=== PATIENT | male | born 1970 | race Caucasian/White ===

== ENCOUNTER 2022-01-17 19:38 | Inpatient (IN) ==
--- NOTE | 2022-01-17 20:46 | XRay Report ---
XR ankle LT min 3V routine CLINICAL HISTORY: left ankle injury COMPARISON: None FINDINGS: Note is made of an acute oblique mildly displaced fracture of the diaphysis of the left tib ia at the junction of the middle and distal thirds. Fracture is displaced 7 mm. A nondisplaced compon ent extends through the distal left tibia. There is an acute oblique comminuted mildly displaced dist al diaphyseal fracture of the left fibula as well. No ankle mortise widening is noted. Lateral ankle soft tissue swelling is present. Talar dome is intact. IMPRESSION: Oblique displaced comminuted left tibial and fibular fractures, as described above. ACT 112: Negative or not required by law. Electronically signed by: Hayder August M.D. 01/17/2022 8:45 PM
--- NOTE | 2022-01-17 20:46 | XRay Report ---
XR tibia fibula LT 2V CLINICAL HISTORY: left lower leg injury COMPARISON: None FINDINGS: No acute proximal left tibial or fibular fracture is present. Note is made of an acute obl ique mildly displaced fracture through the diaphysis of the left tibia at the junction of the middle and distal thirds. Fracture is displaced 7 mm. Nondisplaced component extends to the distal left tibi a. There is also an acute oblique displaced fracture the distal diaphysis of the left fibula. Fractur e is displaced 6 minutes. IMPRESSION: Acute oblique mildly displaced left tibial and fibular fractures, as described above. ACT 112: Negative or not required by law. Electronically signed by: Hayder August M.D. 01/17/2022 8:44 PM
[2022-01-17] MEDS ORDERED: IBUPROFEN 600 MG TAB PO STA (20:53)
--- NOTE | 2022-01-17 22:24 | History & Physical Report ---
Date of Service January 17, 2022 Assessment & Plan (1) Closed fracture of shaft of left tibia: (2) Closed fracture of left distal fibula: (3) Fracture of posterior malleolus of left tibia: The injury has resulted in unstable fractures of the tibial shaft and potentially the distal fibula and posterior malleolus. Recommend admission pain control and surgical management as soon as medically optimized. Plan for left tibial nail and possible ORIF of the lateral malleolus, based on intraoperative evaluation of the syndesmosis. Appreciate internal medicine consult for newfound atrial fibrillation. Patient denied any previous medical history. Should be surgically stabilized as soon as today. Maintain n.p.o. until we know about surgical clearance. On-call to the OR this afternoon. I discussed the operative plan with the patient this morning. Discussed the risks include but not limited to infection, neurovascular injury, arthrofibrosis of the knee or ankle, anterior knee pain related tibial nails, malunion, nonunion, limb deformities including leg length discrepancy, symptomatic hardware requiring secondary surgery, blood loss, pain syndromes, blood clots, and complications related anesthesia. He has appropriate questions, demonstrate good understanding when to proceed with surgery. Alternatives are tibial shaft fractures are limited to cast treatment which have an increased risk profile for healing as well as medical complications. History of Present Illness Chief Complaint: Left tibia and distal fibula fracture Primary Care Provider: TENZIN PCP 51-year-old otherwise healthy and active male twisted his ankle and impacted his leg today resulting in immediate pain and deformity. He was fishing down the bank. He was able to crawl on his hands and knees up to the road where he could find help. He was brought to the emergency room where radiographs revealed a tibial shaft fracture and ipsilateral left distal fibula fracture. Orthopedics was consulted for definitive management. He appeared to have an isolated injury to his tibia and ankle. He was admitted for preoperative management and surgical stabilization the next morning. Upon admission EKG identified atrial fibrillation. Internal medicine was consulted for preoperative work-up. He reported tolerable pain in the splint. He denied any previous injuries to his tibia. He denied any known medical problems or medications. 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 Allergies Allergy/AdvReac Type Severity Reaction Status Date / Time No Known Allergies Allergy Verified 01/17/22 20:15 Home Medications Medication Instructions Recorded Confirmed Type No Known Home Medications 01/17/22 01/17/22 History Past Med/Surg History Medical History Alcohol abuse Crohn's disease Murmur Tobacco abuse Social History Smoking Status: Never smoker Tobacco Type: Smokeless Tobacco (Dip or Chew) Second Hand Exposure: No; Do You Dip or Chew Tobacco: Yes (1/2 can per day); Tobacco Cessation Education Requested by Patient: No Hx Alcohol Use: Yes Alcohol type: beer Alcohol type Comment: 4-5 beers daily, last 2 beers 4/6 Hx Substance Use: No Preferred Language: Sami Communication Ability: Effective Teacher Emotionally Impaired Required: No Beliefs That Will Affect Care: None Current Living Situation: Family Other Information That Helps Us Care for You: No Feels Safe at Home: Yes Safety Concerns: Feels Safe At This Time Assistive Devices: None Review of Systems All systems reviewed & are unremarkable except as noted in HPI & below. Physical Exam Left lower extremity: No report of wounds from the emergency room nor the patient. He was placed in a short leg ankle splint by the ED. Appear to be adequate padding. He was neurovascular intact including motor to his digits. Constitutional well developed and well nourished; no acute distress and not intoxicated appearing ENMT external ear and nose normal, oropharynx normal Respiratory normal respiratory effort; no respiratory distress Cardiovascular Extremities: normal capillary refill; no edema Skin no rashes, warm and dry Psychiatric A+Ox3, euthymic affect Results & Data Results & Data Laboratory Results H & H 01/17/22 01/18/22 Range/Units 22:23 08:04 Hgb 13.9 L 14.3 (14.0-18.0) g/dL Hct 39.7 L 42.1 (42-52) % Coagulation 01/17/22 Range/Units 22:23 INR 1.0 (0.9-1.1) Diagnostic Findings Radiographs demonstrate a tibial shaft fracture with a short oblique pattern. It is displaced and requires surgical stabilization. Ankle films reveal a fracture of the distal fibula extends down into the metaphysis at the level of the syndesmosis and ankle joint. It is comminuted and long oblique in nature. CT scan was requested of the ankle to determine if the spiral fracture of the tibia traverses the plafond. The minimally displaced component does approach the plafond but does not appear to disrupt it. This may need to stabilize prior to nail passage. The posterior malleolus also has a nondisplaced fracture from the rotational ankle injury. PG Care Time/CCT Total # of Minutes Spent Total Time Spent with Patient: Total time spent is greater than 50% in coordination of care (as documented) at patient's floor/unit and/or counseling patient: Coding Level of Care Code 43130 Initial Inpt Care Lvl 3 (57 - DECISION FOR SURGERY) Diagnoses Closed fracture of shaft of left tibia S82.202A Closed fracture of left distal fibula S82.832A Fracture of posterior malleolus of left tibia S82.392A
[2022-01-18] MEDS ORDERED: ALUMINUM/MAGNESIUM SUSP 30 ML UDC PO PRN (00:08)
[2022-01-18] MEDS ORDERED: diphenhydrAMINE Capsule 25 MG CAP PO PRN (00:08)
[2022-01-18] MEDS ORDERED: HYDROmorphone INJ 0.5 MG/0.5 ML SYR IV PRN (00:08)
[2022-01-18] MEDS ORDERED: MAGNESIUM HYDROXIDE SUSP 30 ML UDC PO PRN (00:08)
[2022-01-18] MEDS ORDERED: ONDANSETRON INJ 2 MG/ML 2 ML VIAL IV PRN ×3 (00:08→17:02)
[2022-01-18 00:20] LABS: Basophils # (auto) 0.03 K/uL (0-0.2); Basophils % (auto) 0.4 %; Eosinophils # (auto) 0.01 K/uL (0-0.5); Eosinophils % (auto) 0.1 %; Hematocrit (blood only) 39.7 % (42-52); Hemoglobin 13.9 g/dL (14.0-18.0); Immature Granulocytes # (auto) 0.02 K/uL (0.00-0.02); Immature Granulocytes % (auto) 0.3 %; Lymphocytes # (auto) 0.79 K/uL (1.2-3.4); Lymphocytes % (auto) 9.9 %; Mean Corpuscular Volume 88.4 fL (80-100); Mean Platelet Volume 9.1 fL (7.4-10.4); Monocytes # (auto) 0.43 K/uL (0.11-0.59); Monocytes % (auto) 5.4 %; Neutrophils # (auto) 6.67 K/uL (1.4-6.5); Neutrophils % (auto) 83.9 %; Platelet Count 247 K/uL (130-400); RDW Coefficient of Variation 13.3 % (11.5-14.5); RDW Standard Deviation 43.1 fL (36.4-46.3); Red Blood Count 4.49 M/uL (4.7-6.1); White Blood Count 7.95 K/uL (4.8-10.8)
[2022-01-18 00:28] LABS: Prothrombin Time 10.9 Seconds (9.0-12.0)
[2022-01-18] MEDS: ACETAMINOPHEN 500 MG TAB PO SCH ×3 (00:37→16:00)
[2022-01-18] MEDS: HYDROmorphone INJ 0.5 MG/0.5 ML SYR IV PRN ×3 (00:38→16:11)
[2022-01-18 00:45] LABS: Anion Gap 9 (3-11); BUN Creatinine Ratio 8.1 (10-20); Blood Urea Nitrogen 7 mg/dl (6-23); Calcium 9.1 mg/dl (8.5-10.1); Carbon Dioxide 26 mmol/L (21-32); Chloride 100 mmol/L (98-107); Est GFR (African American) 115.6 ml/min; Est GFR (Non-African American) 99.7 ml/min; Glucose 97 mg/dl (70-99(Fasting)); Potassium 4.2 mmol/L (3.5-5.1); Sodium 135 mmol/L (136-145)
[2022-01-18] MEDS ORDERED: ceFAZolin 2000MG 2,000 MG/15 ML SYR IV SCH (06:00)
[2022-01-18] MEDS: DOCUSATE SODIUM 100 MG CAP PO SCH ×3 (07:46→22:59)
[2022-01-18] MEDS ORDERED: hydrALAZINE HCL 20 MG/ML VIAL IV PRN (07:52)
[2022-01-18 08:16] LABS: Hematocrit (blood only) 42.1 % (42-52); Hemoglobin 14.3 g/dL (14.0-18.0); Mean Corpuscular Hemoglobin 30.6 pg (25-34); Mean Corpuscular Volume 90.1 fL (80-100); Mean Platelet Volume 8.5 fL (7.4-10.4); Platelet Count 230 K/uL (130-400); RDW Coefficient of Variation 13.5 % (11.5-14.5); RDW Standard Deviation 44.4 fL (36.4-46.3); Red Blood Count 4.67 M/uL (4.7-6.1); White Blood Count 7.33 K/uL (4.8-10.8)
--- NOTE | 2022-01-18 08:35 | CT Scan Report ---
CT SCAN OF THE LEFT TIBIA AND FIBULA WITHOUT IV CONTRAST CLINICAL HISTORY: Tibial fracture. COMPARISON STUDY: Radiographs of the left tibia and fibula dated 01/17/2022. TECHNIQUE: CT scan of the left tibia and fibula is performed from the knee to the ankle. Images are r eviewed in the axial, sagittal, and coronal planes. IV contrast was not administered for this examina tion. 3-D reformats are created and assessed. A dose lowering technique was utilized adhering to the principles of ALARA. CT DOSE: 642.38 mGy.cm FINDINGS: The skeletal structures are well mineralized. Again seen is a comminuted spiral fracture of the mid to distal tibial shaft. There is lateral offset of the distal fragment by 5 mm and dorsal di splacement of the distal fragments by up to 5 mm. Fracture extends distally to the articular surface at the posterior tibial plafond. This is best seen on axial image #655. There is also a comminuted fr acture of the lateral malleolus with numerous small displaced fragments. This also extends to the raya nt space. Anatomic alignment is maintained at the ankle mortise. There is a small joint effusion. The proximal tibia and fibula appear intact. The knee joint is grossly maintained. Hemorrhage and edema is noted around the fracture sites with no large/organized hematoma identified. There is mild general ized atrophy of the regional musculature. Advanced atherosclerotic calcification is noted in the leigha onal arteries. IMPRESSION: 1. Comminuted and mildly displaced spiral fracture of the mid to distal tibial shaft. This extends to the articular surface through the posterior malleolus. 2. Comminuted fracture of the lateral malleolus. 3. There is hemorrhage around the fracture sites with no large hematoma identified. ACT 112: Negative or not required by law. Dictated: 01/18/2022 7:59 AM Transcribed: 01/18/2022 8:31 AM Gi [id number] Electronically signed by: Zeus Romero M.D. 01/18/2022 8:33 AM
[2022-01-18 08:39] LABS: Calcium 9.4 mg/dl (8.5-10.1); Creatinine Clr Calc Pharmacy 97.9 ml/min; Est GFR (African American) 117.3 ml/min; Est GFR (Non-African American) 101.2 ml/min; Magnesium 2.1 mg/dl (1.7-2.4); Potassium 4.5 mmol/L (3.5-5.1)
--- NOTE | 2022-01-18 08:43 | Hospitalist Consultation ---
Date of Consultation January 18, 2022 Assessment & Plan (1) Fracture of posterior malleolus of left tibia: Ortho primary Presented with fall/tib/fib fracture after fishing/twisting and fall Able to do flight of stairs without CP/SOB Imaging with 1. Comminuted and mildly displaced spiral fracture of the mid to distal tibial shaft. This extends to the articular surface through the posterior malleolus. 2. Comminuted fracture of the lateral malleolus. 3. There is hemorrhage around the fracture sites with no large hematoma identified. management per ortho ECHO pre-op given +murmur as outlined If any CP/SOB/palpitations consider monitoring on monitored bed post-op Ordered IVF NS @ 70cc/hr for now, slightly dry mm on exam. Monitor volume status given suspected Labs in AM (2) Murmur: Able to do flight of stairs without sob/cp EKG pre-op with noted afib but did have P-waves. Repeat EKG with NSR, LVH (tall male) +murmur 3-01/17 on exam, asymptomatic CXR pending Labs stable Ordered NS @ 70cc/hr due to slightly dry mm but monitor use cautiously to avoid any overload Denied every having ECHO, called to perform prior to surgery -- messaged Dr Kowalski of such as well as anticipating surgery today and remains NPO (3) Hypertension: Elevated 2nd to pain but will need to re-assess once pain levels controlled given LVH. BP improved with pain control, currently 146/88 Possibly rec HTN agent if needed, consider BB, discussed with patient if needed and will arrange for PCP. He would like to discuss with as to where she goes first and will let me know. Hydralazine available prn in mean time (4) EKG abnormality: on admit, EKG w/ possible afib but appears to have P waves. ASymptomatic Repeat EKG with NSR, LVH ECHO as above TSH added given Na 135 on admission, TSH elevated (?stress). Monitor Ft4, initiate synthroid if needed Will arrange for f/u outpt with new PCP (5) Tobacco abuse: 1/2 can chewing tobacco daily. encourage cessation nicotine patch requested and ordered Also admits to 4-5 beers daily. Will order AWSS for at risk. No DT at present but only some anxiety about need for surgery Monitor (6) Closed fracture of left distal fibula: (7) Closed fracture of shaft of left tibia: Supervising Physician Co-Signing Physician Notes PA Supervision Note: I personally saw and examined the patient. I verified all mays points and agree with HARRY Tapia with the following exceptions and/or additions: S-patient seen after return from the operating room later in the evening. He is having pain in the left lower extremity and also requesting nicotine patch but otherwise doing okay. Denies any chest pains or shortness of breath, no nausea. Prior to breaking his leg, he reports occasional heart palpitations but no history of syncope or chest pain. His does report that he frequently has apneic episodes while sleeping and thinks he has sleep apnea. He has not been tested for this. O- Vitals reviewed Gen: AAOx3, NAD HEENT: Anicteric sclerae, EOMI CV: Regular rhythm, mildly tachycardic, 2/6 holosystolic murmur heard at the apex and radiating to the axilla, nl S1S2 Pulm: CTAB no wcr Abd: +BS soft NT ND no masses or hernias Ext: Left leg with splint and Maury wrap in place Skin: No rashes, warm/dry Neuro: Full strength throughout, except not tested in the left leg Labs and rads reviewed ECG from upon arrival shows possible atrial fibrillation, but there are some sinus beats I believe in the EKG-question if this is a sinus arrhythmia? Subsequent EKGs are with normal sinus rhythm Currently in sinus tachycardia on monitoring manager Echocardiogram with preserved EF, mild to moderate MR [id number] male here with fall resulting in left tibia and fibula fracture requiring ORIF. Also with questionable atrial fibrillation on arrival We will continue to monitor on telemetry for further atrial fibrillation He will need an outpatient sleep study due to 's report of frequent apneas while sleeping. Untreated JAZ can lead to atrial fibrillation. He is also a daily alcohol user which also can contribute to atrial fibrillation. No need for anticoagulation at this point especially in the setting of recent fracture and surgery and the fact that he is currently in sinus rhythm History of Present Illness Reason for Consultation: medical management Requesting Physician: Dr Kowalski Attending Physician: Nando Kowalski MD History of Present Illness 51yo male without known significant medical history presented after fishing and fall/twisting of ankle to have broken tib/fib and planned for surgery today. He does not have a PCP, but will establish one. Able to go up flight up stairs without shortness of breath, angina, or syncope. Observed murmur on examination, he believes someone in [place] has told him that in the past but never had an ECHO. No chest pain, shortness of breath, abdominal pain, nausea, or vomiting. He is anxious about the need for surgery. Does admit to chewing tobacco, 1/2 can per day. Initially denied need for nicotine patch but then requested. He does admit to daily alcohol, typically 4-5 cans of beer daily. He endorses he did have two beers yesterday while fishing and sustained fall/injury but denied lightheadedness/dizziness prior. Hx Crohns, diagnosed about 10 years ago, no issues/treatment in past 5-6 years. Had been on medications but side effects too severe and hasn't had follow up. Had been seen by Mouna Love, he believes Dr Matta. Only has small amount of bright red bleeding at times with straining without monika blood in toilet. Issues with constipation at times, but no fever/night sweats/unexplained weight loss. He notes he is the same weight he was in high school. Denies any personal or family history of HTN/AR/CVA/DM. Allergies Allergy/AdvReac Type Severity Reaction Status Date / Time No Known Allergies Allergy Verified 01/17/22 20:15 Home Medications Medication Instructions Recorded Confirmed Type No Known Home Medications 01/17/22 01/17/22 History Patient History Medical History Alcohol abuse Crohn's disease Murmur Tobacco abuse Family History (Updated 01/18/22 @ 22:45 by Ymaile Flores MD) Denies family history of Coronary heart disease Hypertension Social History Smoking Status: Never smoker Tobacco Type: Smokeless Tobacco (Dip or Chew) Second Hand Exposure: No; Do You Dip or Chew Tobacco: Yes (1/2 can per day); Tobacco Cessation Education Requested by Patient: No Hx Alcohol Use: Yes Alcohol type: beer Alcohol type Comment: 4-5 beers daily, last 2 beers 4/6 Hx Substance Use: No Preferred Language: Swiss Communication Ability: Effective Scraper Burrer Required: No Beliefs That Will Affect Care: None Current Living Situation: Family Other Information That Helps Us Care for You: No Feels Safe at Home: Yes Safety Concerns: Feels Safe At This Time Assistive Devices: None Review of Systems Review of Systems: All systems reviewed & are unremarkable except as noted in HPI & below Physical Exam Physical Exam: General: WN/WD thin male, sitting up in bed, NAD Eyes anicteric, pupils equal and reactive, mm slightly dry Trachea midline,no deviation Resp: CTAB, no w/c/r, 100% on RA CV: RRR, 3-4/6 systolic murmur with radiation to carotids, no edema/calf non- tender, pulses palpable GI: +BS, soft, non-tender MSK: LLE in split with MAURY wrap, NVI, toes mobile Neuro: NVI, moves all extremities, no focal deficit Psych: AOx3, cooperative and pleasant, admits to some anxiety regarding upcoming surgery Results & Data Results & Data ([facility]) Vital Signs (Past 12 Hours) Vital Signs Temp Pulse Pulse Resp BP BP Pulse Ox 01/18/22 07:52 37.1 C 88 17 146/88 H 100 01/17/22 23:45 37 C 103 H 18 184/102 H 99 01/17/22 21:38 107 H 18 157/109 H 96 Laboratory Results 01/18/22 01/18/22 01/18/22 Range/Units 08:04 08:04 08:04 WBC 7.33 (4.8-10.8) K/uL RBC 4.67 L (4.7-6.1) M/uL Hgb 14.3 (14.0-18.0) g/dL Hct 42.1 (42-52) % MCV 90.1 (80-100) fL MCH 30.6 (25-34) pg MCHC 34.0 (32-36) g/dL RDW Std Deviation 44.4 (36.4-46.3) fL RDW Coeff of Mirtha 13.5 (11.5-14.5) % Plt Count 230 (130-400) K/uL MPV 8.5 (7.4-10.4) fL Immature Gran % (Auto) % Neut % (Auto) % Lymph % (Auto) % [place] % (Auto) % Eos % (Auto) % Baso % (Auto) % Neut # (Auto) (1.4-6.5) K/uL Lymph # (Auto) (1.2-3.4) K/uL [place] # (Auto) (0.11-0.59) K/uL Eos # (Auto) (0-0.5) K/uL Baso # (Auto) (0-0.2) K/uL Immature Gran # (Auto) (0.00-0.02) K/uL PT (9.0-12.0) Seconds INR (0.9-1.1) Sodium 136 (136-145) mmol/L Potassium 4.5 (3.5-5.1) mmol/L Chloride 100 (98-107) mmol/L Carbon Dioxide 28 (21-32) mmol/L Anion Gap 8 (3-11) BUN 8 (6-23) mg/dl Creatinine 0.83 (0.6-1.4) mg/dl Est Cr Clr Drug Dosing 97.9 Est GFR ( Amer) 117.3 ml/min Est GFR (Non-Af Amer) 101.2 ml/min BUN/Creatinine Ratio (10-20) Glucose (70-99(Fasting)) mg/dl Fasting Glucose 91 (70-99) mg/dl Calcium 9.4 (8.5-10.1) mg/dl Magnesium 2.1 (1.7-2.4) mg/dl TSH 5.257 H (0.300-4.500) uIu/ml Free T4 Pending SARS-CoV-2, RNA, NAAT (NEGATIVE) 01/18/22 01/18/22 01/17/22 Range/Units 00:19 00:19 22:23 WBC (4.8-10.8) K/uL RBC (4.7-6.1) M/uL Hgb (14.0-18.0) g/dL Hct (42-52) % MCV (80-100) fL MCH (25-34) pg MCHC (32-36) g/dL RDW Std Deviation (36.4-46.3) fL RDW Coeff of Mirtha (11.5-14.5) % Plt Count (130-400) K/uL MPV (7.4-10.4) fL Immature Gran % (Auto) % Neut % (Auto) % Lymph % (Auto) % [place] % (Auto) % Eos % (Auto) % Baso % (Auto) % Neut # (Auto) (1.4-6.5) K/uL Lymph # (Auto) (1.2-3.4) K/uL [place] # (Auto) (0.11-0.59) K/uL Eos # (Auto) (0-0.5) K/uL Baso # (Auto) (0-0.2) K/uL Immature Gran # (Auto) (0.00-0.02) K/uL PT 10.9 (9.0-12.0) Seconds INR 1.0 (0.9-1.1) Sodium 135 L (136-145) mmol/L Potassium 4.2 (3.5-5.1) mmol/L Chloride 100 (98-107) mmol/L Carbon Dioxide 26 (21-32) mmol/L Anion Gap 9 (3-11) BUN 7 (6-23) mg/dl Creatinine 0.86 (0.6-1.4) mg/dl Est Cr Clr Drug Dosing Not Reportable Est GFR ( Amer) 115.6 ml/min Est GFR (Non-Af Amer) 99.7 ml/min BUN/Creatinine Ratio 8.1 L (10-20) Glucose 97 (70-99(Fasting)) mg/dl Fasting Glucose (70-99) mg/dl Calcium 9.1 (8.5-10.1) mg/dl Magnesium 1.9 (1.7-2.4) mg/dl TSH (0.300-4.500) uIu/ml Free T4 SARS-CoV-2, RNA, NAAT (NEGATIVE) 01/17/22 01/17/22 Range/Units 22:23 22:03 WBC 7.95 (4.8-10.8) K/uL RBC 4.49 L (4.7-6.1) M/uL Hgb 13.9 L (14.0-18.0) g/dL Hct 39.7 L (42-52) % MCV 88.4 (80-100) fL MCH 31.0 (25-34) pg MCHC 35.0 (32-36) g/dL RDW Std Deviation 43.1 (36.4-46.3) fL RDW Coeff of Mirtha 13.3 (11.5-14.5) % Plt Count 247 (130-400) K/uL MPV 9.1 (7.4-10.4) fL Immature Gran % (Auto) 0.3 % Neut % (Auto) 83.9 % Lymph % (Auto) 9.9 % [place] % (Auto) 5.4 % Eos % (Auto) 0.1 % Baso % (Auto) 0.4 % Neut # (Auto) 6.67 H (1.4-6.5) K/uL Lymph # (Auto) 0.79 L (1.2-3.4) K/uL [place] # (Auto) 0.43 (0.11-0.59) K/uL Eos # (Auto) 0.01 (0-0.5) K/uL Baso # (Auto) 0.03 (0-0.2) K/uL Immature Gran # (Auto) 0.02 (0.00-0.02) K/uL PT (9.0-12.0) Seconds INR (0.9-1.1) Sodium (136-145) mmol/L Potassium (3.5-5.1) mmol/L Chloride (98-107) mmol/L Carbon Dioxide (21-32) mmol/L Anion Gap (3-11) BUN (6-23) mg/dl Creatinine (0.6-1.4) mg/dl Est Cr Clr Drug Dosing Est GFR ( Amer) ml/min Est GFR (Non-Af Amer) ml/min BUN/Creatinine Ratio (10-20) Glucose (70-99(Fasting)) mg/dl Fasting Glucose (70-99) mg/dl Calcium (8.5-10.1) mg/dl Magnesium (1.7-2.4) mg/dl TSH (0.300-4.500) uIu/ml Free T4 SARS-CoV-2, RNA, NAAT NEGATIVE (NEGATIVE) Diagnostic Findings Tibia/Fibula X-Ray 01/17/22 20:22 XR tibia fibula LT 2V CLINICAL HISTORY: left lower leg injury COMPARISON: None FINDINGS: No acute proximal left tibial or fibular fracture is present. Note is made of an acute oblique mildly displaced fracture through the diaphysis of the left tibia at the junction of the middle and distal thirds. Fracture is displaced 7 mm. Nondisplaced component extends to the distal left tibia. There is also an acute oblique displaced fracture the distal diaphysis of the left fibula. Fracture is displaced 6 minutes. IMPRESSION: Acute oblique mildly displaced left tibial and fibular fractures, as described above. ACT 112: Negative or not required by law. Electronically signed by: Hayder August M.D. 01/17/2022 8:44 PM Ankle X-Ray 01/17/22 20:33 XR ankle LT min 3V routine CLINICAL HISTORY: left ankle injury COMPARISON: None FINDINGS: Note is made of an acute oblique mildly displaced fracture of the diaphysis of the left tibia at the junction of the middle and distal thirds. Fracture is displaced 7 mm. A nondisplaced component extends through the distal left tibia. There is an acute oblique comminuted mildly displaced distal diaphyseal fracture of the left fibula as well. No ankle mortise widening is noted. Lateral ankle soft tissue swelling is present. Talar dome is intact. IMPRESSION: Oblique displaced comminuted left tibial and fibular fractures, as described above. ACT 112: Negative or not required by law. Electronically signed by: Hayder August M.D. 01/17/2022 8:[address] 01/17/22 21:12 CT SCAN OF THE LEFT TIBIA AND FIBULA WITHOUT IV CONTRAST CLINICAL HISTORY: Tibial fracture. COMPARISON STUDY: Radiographs of the left tibia and fibula dated 01/17/2022. TECHNIQUE: CT scan of the left tibia and fibula is performed from the knee to the ankle. Images are reviewed in the axial, sagittal, and coronal planes. IV contrast was not administered for this examination. 3-D reformats are created and assessed. A dose lowering technique was utilized adhering to the principles of ALARA. CT DOSE: 642.38 mGy.cm FINDINGS: The skeletal structures are well mineralized. Again seen is a comminuted spiral fracture of the mid to distal tibial shaft. There is lateral offset of the distal fragment by 5 mm and dorsal displacement of the distal fragments by up to 5 mm. Fracture extends distally to the articular surface at the posterior tibial plafond. This is best seen on axial image #655. There is also a comminuted fracture of the lateral malleolus with numerous small displaced fragments. This also extends to the joint space. Anatomic alignment is maintained at the ankle mortise. There is a small joint effusion. The proximal tibia and fibula appear intact. The knee joint is grossly maintained. Hemorrhage and edema is noted around the fracture sites with no large/organized hematoma identified. There is mild generalized atrophy of the regional musculature. Advanced atherosclerotic calcification is noted in the regional arteries. IMPRESSION: 1. Comminuted and mildly displaced spiral fracture of the mid to distal tibial shaft. This extends to the articular surface through the posterior malleolus. 2. Comminuted fracture of the lateral malleolus. 3. There is hemorrhage around the fracture sites with no large hematoma identified. ACT 112: Negative or not required by law. Dictated: 01/18/2022 7:59 AM Transcribed: 01/18/2022 8:31 AM Gi [id number] Electronically signed by: Zeus Romero M.D. 01/18/2022 8:33 AM PG Care Time/CCT Total # of Minutes Spent Total Time Spent with Patient: Total time spent is greater than 50% in coordination of care (as documented) at patient's floor/unit and/or counseling patient: Coding Level of Care Code 70054 Inpt Consult Level 3 Diagnoses Fracture of posterior malleolus of left tibia S82.392A Closed fracture of left distal fibula S82.832A Closed fracture of shaft of left tibia S82.202A Hypertension I10 EKG abnormality R94.31 Murmur R01.1 Tobacco abuse Z72.0
[2022-01-18 08:53] LABS: Thyroid Stimulating Hormone 5.257 uIu/ml (0.300-4.500)
[2022-01-18] MEDS ORDERED: LORazepam 2 MG/1 ML VIAL IV PRN (09:10)
[2022-01-18] MEDS ORDERED: LORazepam 1 MG TAB PO PRN (09:10)
--- NOTE | 2022-01-18 09:23 | XRay Report ---
XR chest 1V portable CLINICAL HISTORY: Preoperative evaluation. COMPARISON STUDY: No previous studies for comparison. FINDINGS: Lung volumes are normal. Lungs are clear. There is no pneumothorax or pleural effusion. Car diac size is normal. Mediastinal contours are normal. There is no evidence for pulmonary edema. IMPRESSION: No acute cardiopulmonary findings. ACT 112: Negative or not required by law. Electronically signed by: Hayder August M.D. 01/18/2022 9:22 AM
--- NOTE | 2022-01-18 09:24 | Electrocardiogram Report ---
Test Reason : Blood Pressure : / mmHG Vent. Rate : 080 BPM Atrial Rate : 075 BPM P-R Int : 000 ms QRS Dur : 088 ms QT Int : 392 ms P-R-T Axes : 000 053 053 degrees QTc Int : 452 ms Poor data quality, interpretation may be adversely affected Probable Normal sinus rhythm Voltage criteria for left ventricular hypertrophy Abnormal ECG No previous ECG available for comparison Reconfirmed by Bryce Engel ([id number]) on 01/19/2022 8:42:34 PM Referred By: REFERRED SELF Confirmed By:Bryce Engel
[2022-01-18 09:26] LABS: T4 Free Thyroxine 0.78 ng/dl (0.61-1.60)
--- NOTE | 2022-01-18 09:30 | Electrocardiogram Report ---
Test Reason : Blood Pressure : / mmHG Vent. Rate : 065 BPM Atrial Rate : 065 BPM P-R Int : 126 ms QRS Dur : 084 ms QT Int : 422 ms P-R-T Axes : 022 052 057 degrees QTc Int : 438 ms Normal sinus rhythm Voltage criteria for left ventricular hypertrophy Abnormal ECG When compared with ECG of 18-JAN-2022 00:28, No significant change Reconfirmed by Bryce Engel ([id number]) on 01/19/2022 8:42:57 PM Referred By: REFERRED SELF Confirmed By:Bryce Engel
--- NOTE | 2022-01-18 09:30 | Electrocardiogram Report ---
Test Reason : Blood Pressure : / mmHG Vent. Rate : 070 BPM Atrial Rate : 070 BPM P-R Int : 132 ms QRS Dur : 092 ms QT Int : 418 ms P-R-T Axes : 021 056 059 degrees QTc Int : 451 ms Normal sinus rhythm Voltage criteria for left ventricular hypertrophy Abnormal ECG When compared with ECG of 18-JAN-2022 08:29, No significant change was found Confirmed by Bryce Engel ([id number]) on 01/18/2022 9:30:11 AM Referred By: REFERRED SELF Confirmed By:Bryce Engel
--- NOTE | 2022-01-18 10:19 | XCELERA ---
[id number]
[2022-01-18] MEDS: SODIUM CHLORIDE 0.9% 1000ML 1,000 ML IV SCH ×2 (10:21→23:01)
[2022-01-18] MEDS: THIAMINE HCL 100 MG in SYRINGE 9 ML IV SCH (10:21)
[2022-01-18] MEDS: NICOTINE 14 MG/24 HR PATCH TD SCH ×2 (10:21→23:03)
[2022-01-18] MEDS: FOLIC ACID 1 MG in SYRINGE 9.8 ML IV SCH (10:21)
[2022-01-18] MEDS ORDERED: ATROPINE SULFATE 0.1 MG/ML 10ML SYR IV PRN ×2 (16:49→17:02)
[2022-01-18] MEDS ORDERED: PROMETHAZINE HCL 12.5 MG in SODIUM CHLORIDE 0.9% 50 ML IV PRN ×2 (16:49→17:02)
[2022-01-18] MEDS ORDERED: HYDROmorphone INJ 2 MG/ML SYR/VIAL IV PRN ×2 (16:49→17:02)
[2022-01-18] MEDS ORDERED: ePHEDrine sulfate 50 MG/ML AMP IV PRN ×2 (16:49→17:02)
--- NOTE | 2022-01-18 16:49 | Anesthesiology Consultation ---
Date of Service January 18, 2022 Assessment & Plan (1) Encounter for pre-operative examination: Chart Review Chart Review: Acceptable Risk for Surgery and Patient NOT seen in Pre Admission Testing Consults Requested none History Surgery Operation Date: 01/18/22 11:50 Proposed Procedures p Left Tibial Nail - Nando Kowalski MD s Possible Open Reduction Internal Fixation Ankle - Nando Kowalski MD Height/Weight Height: 5 ft 8 in Weight: 66.5 kg Allergies Allergy/AdvReac Type Severity Reaction Status Date / Time No Known Allergies Allergy Verified 01/17/22 20:15 Medications Home Medications Medication Instructions Recorded Confirmed Last Taken No Known Home Medications 01/17/22 01/17/22 Unknown Active Medications Generic Name Dose Route Start Last Admin Trade Name Freq PRN Reason Stop Dose Admin Acetaminophen 1,000 mg 01/18/22 00:30 01/18/22 16:00 Acetaminophen 500 Mg Tab PO 02/17/22 00:29 Not Given Q8H MALGORZATA Docusate Sodium 100 mg 01/18/22 09:00 01/18/22 07:50 Docusate Sodium 100 Mg Cap PO 02/17/22 08:59 Not Given BID MALGORZATA Hydromorphone HCl 0.5 mg 01/18/22 00:08 01/18/22 16:11 Hydromorphone Inj 0.5 Mg/0.5 Ml Syr IV 02/01/22 00:07 0.5 mg Q3H PRN Administration Pain (6,7,8,9,10) Thiamine HCl 100 mg/ Syringe 10 mls @ 2 mls/min 01/18/22 09:00 01/18/22 10:21 IV 02/17/22 08:59 2 mls/min QAM MALGORZATA Administration Folic Acid 1 mg/ Syringe 10 mls @ 5 mls/min 01/18/22 09:00 01/18/22 10:21 IV 02/17/22 08:59 5 mls/min QAM MALGORZATA Administration Sodium Chloride 1,000 mls @ 70 mls/hr 01/18/22 09:15 01/18/22 16:10 Nss 1000ml IV 02/17/22 09:14 0 mls/hr .[id number] MALGORZATA Infusion Nicotine 14 mg 01/18/22 09:15 01/18/22 10:21 Nicotine 14 Mg/24 Hr Patch TD 02/17/22 09:14 14 mg QAM MALGORZATA Administration NPO Date Last Intake of Fluids: 01/17/22 Time Last Intake of Fluids: 23:00 Last Intake of Fluids Comment: sip of water with meds Date Last Intake of Solids: 01/17/22 Time Last Intake of Solids: 16:00 Past Medical History Medical History Alcohol abuse Crohn's disease Murmur Tobacco abuse Exercise / Class Metabolic Activity II 4-5 Yardwork/Stairs/Walk up hill Negative for chest pain or shortness of breath. Social History Smoking Status: Never smoker tobacco type: smokeless tobacco Do You Dip or Chew Tobacco: Yes (1/2 can per day) Hx Alcohol Use: Yes Alcohol type: beer alcohol intake frequency: 3 or more drinks per day Hx Substance Use: No substance use type: does not use Physical Exam Vital Signs Last Vital Signs Temp 36.9 C 01/18/22 15:30 Pulse 93 H 01/18/22 15:30 Resp 18 01/18/22 15:30 BP 151/81 H 01/18/22 15:30 Pulse Ox 97 01/18/22 15:30 Testing Laboratory Results 01/18/22 08:04 01/18/22 08:04 PT 10.9 Seconds (9.0-12.0) 01/17/22 22:23 INR 1.0 (0.9-1.1) 01/17/22 22:23 Electrocardiogram Date: 01/18/22 Normal sinus rhythm (70) Voltage criteria for left ventricular hypertrophy Abnormal ECG When compared with ECG of 18-JAN-2022 08:29, No significant change was found
[2022-01-18] MEDS ORDERED: LIDOCAINE 2% 2 ML VIAL/AMP(20MG/ML) INFIL ONE (16:52)
[2022-01-18] MEDS ORDERED: MIDAZOLAM HCL 1 MG/ML 2ML VIAL ONE (16:52)
[2022-01-18] MEDS ORDERED: fentaNYL citrate 100 MCG/2 ML VIAL ONE ×2 (16:52→20:36)
[2022-01-18] MEDS ORDERED: PROPOFOL IV EMULSION 10 MG/ML 20 ML VIAL IV ONE (16:52)
[2022-01-18] MEDS ORDERED: ROCURONIUM BROMIDE 10 MG/ML 5 ML VIAL IV ONE (16:53)
[2022-01-18] MEDS ORDERED: ONDANSETRON INJ 2 MG/ML 2 ML VIAL ONE ×2 (16:53→20:38)
[2022-01-18] MEDS ORDERED: DEXAMETHASONE SOD INJ 4 MG/ML VIAL ONE (16:53)
[2022-01-18] MEDS ORDERED: fentaNYL citrate 100 MCG/2 ML VIAL IV PRN (17:02)
[2022-01-18] MEDS ORDERED: KETAMINE 50 MG/5 ML SYRINGE ONE (17:07)
[2022-01-18] MEDS ORDERED: ROPIVACAINE 0.5% 5 MG/ML 30 ML VIAL ONE (17:07)
--- NOTE | 2022-01-18 17:26 | History & Physical Bridge Note ---
Date of Service January 18, 2022 History & Physical Bridge Note I have examined the patient, reviewed the History & Physical and in the interval since the performance of the History & Physical I have noted the following changes of clinical significance: no changes noted. Patient is aware of COVID-19 risks. Patient is asymptomatic for COVID-19. Patient has been tested for COVID-19 - [NEGATIVE].
[2022-01-18] MEDS ORDERED: PHENYLEPHRINE HCL 10 MG/ML VIAL ONE (17:44)
[2022-01-18] MEDS ORDERED: BUPIVACAINE 0.5 % 5 MG/1 ML PF 10ML VIAL ONE (19:15)
[2022-01-18] MEDS ORDERED: ePHEDrine sulfate 50 MG/ML AMP ONE (19:37)
[2022-01-18] MEDS ORDERED: ceFAZolin 330 MG/ML 1 GM VIAL ONE (20:53)
[2022-01-18] MEDS: fentaNYL citrate 100 MCG/2 ML VIAL IV PRN ×2 (21:56→22:01)
--- NOTE | 2022-01-18 22:08 | Operative Report ---
PG Post Operative Report Pre & Post Diagnosis Operation Date: 01/18/22 11:50 Pre-Op Diagnosis: Closed fracture of shaft of left tibia, closed fracture of left distal fibula, fracture of posterior malleolus of left tibia Post-Op Diagnosis: Closed fracture of shaft of left tibia, closed fracture of left distal fibula, fracture of posterior malleolus of left tibia I identified the patient and participated in the time-out.: Yes Procedure Operation Date: 01/18/22 11:50 Actual Procedures p Left tibia closed reduction and Intramedullary Nail fixation, Fibula Fracture Open Reduction, Internal Fixation(Left) - Nando Kowalski MD Surgeon Nando Kowalski MD [employer] Nate Houston PA-C Estimated Blood Loss 150 Findings See Below All Synthes implants: 10 mm x 360 mm titanium cannulated tibial nail. 5 x 40 mm titanium locking screw in the dynamic proximal hole. 5 x 36 mm static proximal tibia titanium locking screw. 5 x 38 mm distal titanium locking screw. 2.7/3.5 distal fibular anatomic locking plate 5 holes. 2.7 locking screws 10 mm x 1, 12 mm x 1, 40 mm x 2. 3.5 mm cortical screws 14 mm x 3. The tibial nail was a short oblique pattern that achieved anatomic reduction. The fibular fracture was significantly comminuted and metadiaphyseal junction was complicated reduction. It was stabilized with a bridge plate technique. Specimens None Anesthesia Type General Regional Complications none Disposition Accompanied Patient To Recovery: No Disposition: Recovery Room Indications 51-year-old male sustained a twisting fall event on his left leg resulting in a displaced tibial shaft and ipsilateral transsyndesmotic fibular fracture. He was admitted for preoperative pain control and work-up. I recommended surgical stabilization with a tibial nail and possible ORIF of his distal fibula based on syndesmotic stability. He was agreeable to proceed. Internal medicine was consulted for concern of a murmur and atrial fibrillation on admission EKG. He was cleared for surgery today. Description of Procedure On the day of surgery, the patient was greeted in the preoperative holding area. The informed consent was reviewed and confirmed by myself and the patient. The patient identified the surgical site and was marked by me. The patient was then turned over to anesthesia. Anesthesia performed a regional anesthetic block with excellent effect. Patient was then taken to the operating place upon the [facility] top OR table and anesthesia was induced. The airway was secured. Ipsilateral hip bump was placed. Nonsterile tourniquet placed high in the thigh. Left limb was then prepped and draped in usual sterile fashion for lower extremity trauma surgery. Surgical timeout was called and circulators verified all present. Maximum infused equipment available functional. Trauma triangle was placed with the knee in flexion. We initiated the procedure with a medial patellar approach to the proximal tibia. Bovie describes used for hemostasis. The fat pad was pushed away and the starting pin was placed and confirmed on AP and lateral views. Starting pin was then directed to the proximal tibia. The starting reamer was advanced to open up the canal. The ball-tipped guidewire was then directed across the fracture down to the distal tibia. We used a bent wire to guide it to the central portion of the plafond. Esmarch bandage was then used as a reduction tool at the mid tibia. We then worked on the reduction using fluoroscopy. The pin was backed out once and then redirected to be center center at the fracture and down at the tibial plafond. Once we felt we had adequate reduction it was held by my physician assistant professor of drama. I then reamed, starting with an 8.5 and advancing until we reached 11.5 where there was good chatter. A 10 mm diameter nail was selected with a measured length of 360 mm. The fracture reduction was studied by fluoroscopy and then we advanced the nail carefully. We did adjust the reduction 1 time with the Esmarch. The nail was tapped down under fluoroscopic guidance all the way to the center of the plafond. We are pleased with her reduction in nail size. We ensured appropriate position at the proximal tibia. The jig for the proximal locking screws was placed. We used the S1 and dynamic holes and placed interlock screws. The trochars placed the jig to doris the skin. We made a small incision and percutaneously spread the soft tissues to allow advancement of the drill guide on bone. We then moved distally for a perfect [place] technique for distal interlocks. Again we used a percutaneous technique and used a hemostat to spread soft tissues protected while we performed our drilling. These were directed from medial to lateral. The most distal 1 was kept short to avoid the syndesmotic articulation. There was good purchase on both screws, which likely stabilized the fracture in the coronal plane and extended towards the plafond. Final fluoroscopic views were taken of the tibial nail. The wounds were thoroughly irrigated and debrided. The physician assistant professor of drama began closure of the proximal tibia incision while I directed attention to the lateral malleolus. The limb was then placed on sterile bumps for fluoroscopic views. I made a direct lateral incision over the fibula sharply. Bovie electrocautery was used for subcutaneous dissection. Tenotomy scissors were used with caution for the nearby peroneal nerve. It was protected anteriorly in the wound. The fracture was approached. I debrided the fracture keys. There was abundant comminution in the metaphyseal region. There was only one length and rotational cortical mays visible on the posterior lateral aspect of the fibula. I attempted to stabilize this with clamps to no avail due to the comminution. I also tried a K wire to span it. Unfortunately was too comminuted. We then placed an appropriate length anatomic distal fibular locking plate, selected by fluoroscopy, on the lateral malleolus. Provisional K wires through the locking guides held in place. I placed 1 locking screw in the central portion of the malleolus. I then affected reduction of the shaft to the plate then used a 1 cortical mays that was visible posterior laterally. We clamped the bone to the plate and then fixed a shaft screw. This cortical screw sucked the plate to the proximal fragment and seem to reduce well. This was studied on fluoroscopy. I then attempted interfragmentary screw to the medial fibular fragment, but no purchase was able to be obtained due to comminution. I then used a cinch and slide sale not using fiber tape suture around the distal fibula and plate to reduce the proximal aspect of the distal fibular fragment to more anatomic p osition against the plate. The locking guides were then used to place 4 locking screws in the distal malleoli fragment. We then placed additional 3.5 mm cortical screws in the shaft component to compress the plate to bone. The seem to line up the malleolus well. The final construct was abridged technique with the anatomic locking plate. Final fluoroscopic views were obtained and seen be acceptable reduction in plate placement with appropriate screw lengths. All wounds were thoroughly irrigated once again. My physician assistant professor of drama had closed all the medial tibial shaft wounds. The patellar retinaculum was closed with 0 Vicryl suture. 2-0 Vicryl suture used in the deep subcutaneous tissues and dermis. Final closure was with zita. The lateral malleoli are incision was closed with 0 Vicryl suture approximating periosteum over the plate in its entirety. Deep subcutaneous tissues and the dermis were closed with 3-0 Vicryl followed by zita. Wounds are dressed with sterile Xeroform, sterile gauze and ABDs. Standard plaster L and U ankle splint was applied with adequate padding. Anesthesia performed a rescue abductor canal block before extubation. He was also straight cathed. The patient tolerated procedure well, was extubated in the operating without complication, and transferred to the recovery area in stable condition. Disposition: He will remain inpatient for pain control and initiation of PT/OT. Will initiate DVT chemoprophylaxis on postoperative day 1. In addition we will have SCDs and KASSIDY hose placed. Repeat x-rays were taken the recovery area. He will follow-up in clinic in 10 to 14 days postoperative for splint removal, advancement of the boot, and repeat x-rays. Physician assistant professor of drama attestation: Nate Houston PA-C was present and scrubbed for the duration of the case. He was essential to prepping/draping, patient positioning, retraction, and assistance with wound closure. Skilled assistance was critical to fracture reduction while I was managing the instrumentation for both fractures. I attest to the content of the Intraoperative Record and any orders documented therein. Any exceptions are noted below.
[2022-01-18] MEDS ORDERED: NALOXONE HCL 0.4 MG/1 ML VIAL/CARP IV PRN (22:34)
[2022-01-18] MEDS ORDERED: SODIUM CHLORIDE 0.9% 1000ML 1,000 ML IV SCH (22:34)
[2022-01-18] MEDS: oxyCODONE HCL IR 5 MG TAB (IMMEDIATE RELEASE) PO PRN (22:58)
[2022-01-18] MEDS ORDERED: TRANEXAMIC ACID / 0.7% NACL 1,000 MG/100 ML BAG IV ONE (23:00)
[2022-01-19] MEDS: ACETAMINOPHEN 500 MG TAB PO SCH ×3 (01:05→16:53)
[2022-01-19] MEDS: ceFAZolin 2000MG 2,000 MG/15 ML SYR IV SCH ×2 (03:51→11:51)
[2022-01-19] MEDS: oxyCODONE HCL IR 5 MG TAB (IMMEDIATE RELEASE) PO PRN ×3 (03:51→18:10)
[2022-01-19 06:06] LABS: Hemoglobin 11.2 g/dL (14.0-18.0); Mean Corpuscular Hemoglobin 31.2 pg (25-34); Mean Corpuscular Hgb Conc 33.9 g/dL (32-36); Mean Corpuscular Volume 91.9 fL (80-100); Mean Platelet Volume 8.8 fL (7.4-10.4); Platelet Count 211 K/uL (130-400); RDW Coefficient of Variation 13.4 % (11.5-14.5); RDW Standard Deviation 44.8 fL (36.4-46.3); Red Blood Count 3.59 M/uL (4.7-6.1); White Blood Count 7.61 K/uL (4.8-10.8)
[2022-01-19 06:13] LABS: BUN Creatinine Ratio 12.8 (10-20); Calcium 7.8 mg/dl (8.5-10.1); Creatinine Clr Calc Pharmacy 86.5 ml/min; Est GFR (African American) 107.6 ml/min; Est GFR (Non-African American) 92.8 ml/min; Magnesium 1.8 mg/dl (1.7-2.4); Potassium 4.1 mmol/L (3.5-5.1)
[2022-01-19 06:38] LABS: Folate (Folic Acid) 8.72 ng/ml (>5.38)
--- NOTE | 2022-01-19 07:54 | XRay Report ---
XR tibia fibula LT 2V CLINICAL HISTORY: Postoperative evaluation. COMPARISON: CT of the left tibia and fibula and left tibia and fibula radiographs January 17, 2022. FINDINGS: Expected postoperative findings following internal fixation of the left tibial and fibular fractures are noted. There is an intramedullary lindsey with proximal distal screws within the left tibi a and distal left fibular plate and screw fixation. There are no unexpected radiopaque foreign bodies . Fracture alignment appears near anatomic. Overlying cast is noted. There are no unexpected radiopaq ue foreign bodies. IMPRESSION: Expected findings following internal fixation of the left tibial and fibular fractures. ACT 112: Negative or not required by law. Electronically signed by: Hayder August M.D. 01/19/2022 7:52 AM
--- NOTE | 2022-01-19 07:55 | Fluoroscopy Report ---
FL tibia/fibula LT 2V CLINICAL HISTORY: LT TIBIAL NAIL VS ORIF ANKLE COMPARISON STUDY: CT of the left tibia and fibula and radiograph of the left tibia and fibula January 17, 2022. FLUOROSCOPY TIME: 216 seconds. FLUOROSCOPIC IMAGES: 14 FINDINGS: Fluoroscopy was provided during internal fixation of the left tibial and fibular fractures. Intramedullary lindsey with proximal distal screws within the left tibia are noted as well as a distal l eft fibular plate and screw fixation. Hardware is intact. Fracture alignment appears near anatomic. T here are no unexpected radiopaque foreign bodies. IMPRESSION: Fluoroscopy provided during internal fixation of the left tibial and fibular fractures. ACT 112: Negative or not required by law. Electronically signed by: Hayder August M.D. 01/19/2022 7:53 AM
[2022-01-19] MEDS: DOCUSATE SODIUM 100 MG CAP PO SCH (08:07)
[2022-01-19] MEDS: THIAMINE HCL 100 MG in SYRINGE 9 ML IV SCH (08:07)
[2022-01-19] MEDS: FOLIC ACID 1 MG in SYRINGE 9.8 ML IV SCH (08:07)
--- NOTE | 2022-01-19 08:20 | Hospitalist Progress Note ---
Date of Service January 19, 2022 Assessment & Plan (1) Fracture of posterior malleolus of left tibia: Plan: Ortho primary Presented with fall/tib/fib fracture after fishing/twisting and fall Able to do flight of stairs without CP/SOB Imaging with comminuted and mildly displaced spiral fracture of the mid to distal tibial shaft. This extends to the articular surface through the posterior malleolus. Comminuted fracture of the lateral malleolus. There is hemorrhage argelia und the fracture sites with no large hematoma identified. management per ortho ECHO pre-op given +murmur as outlined, mild-moderate MR Monitoring post-op on tele, consider event monitor at d/c to monitor for recurrence of afib --NONE POD #1 s/p Left tibia closed reduction and Intramedullary Nail fixation, Fibula Fracture Open Reduction, Internal Fixation(Left) - Nando Kowalski MD EBL 150cc Hgb dropped significantly, acute blood loss from surgery/dilutional from IVF. --> +orthostatics with PT today, providing 1L IVF bolus, will repeat. If improved can d/c Given 0.5mg x 1 ativan for anxiety symptoms as discussed with patient. NO HTN/gooseflesh/abd pain/nausea to suspect DTs currently but obv there is risk but would not expect just yet as last drink <48 hours ago. Repeat orthostatics improved and no other symptoms reported Discussed with Dr Kowalski, may also benefit from couple weeks of oral Fe supplementation given blood loss to boost stores. Would encourage bowel regimen with such Lovenox SQ at discharge for DVT prophylaxis Arranging outpt f/u PCP, sleep study ( reported apneic periods when sleeping), event monitor (cards confirmed initially EKG NOT afib) (2) Murmur: Plan: Able to do flight of stairs without sob/cp EKG pre-op with noted afib but did have P-waves. Repeat EKG with NSR, LVH (tall male) +murmur 3-4/6 on exam, asymptomatic CXR pre-op no acute process ECHO with mild-moderate MR F/u outpatient /event monitor for arrythmia (3) Hypertension: Plan: Elevated 2nd to pain but will need to re-assess once pain levels controlled given LVH. BP improved with pain control, currently 146/88 Possibly rec HTN agent if needed, consider BB, discussed with patient if needed and will arrange for PCP. He would like to discuss with as to where she goes first and will let me know. Hydralazine available prn in mean time BP low normal, +orthostatics 1L IVF to be provided as above, monitor repeat (BPs with therapy 120-140 systolic) --> improved, no symptoms (4) EKG abnormality: Plan: on admit, EKG w/ possible afib but appears to have P waves. ASymptomatic Repeat EKG with NSR, LVH ECHO as above TSH added given Na 135 on admission, TSH elevated (?stress). Monitor Ft4, initiate Synthroid if needed. FT4 wnl and rec repeating TFT in 4-6 wks with new PCP, being arranged by CM Confirmed with Dr Engel P-waves on initial EKG and to be changed in system. Holter monitor/avoidance of etoh encouraged at d/c (5) Tobacco abuse: Plan: 1/2 can chewing tobacco daily. encourage cessation nicotine patch requested and ordered Also admits to 4-5 beers daily. No DTs during inpatient stay, encouraged decreased intake at d/c (6) Closed fracture of left distal fibula: Plan: as above (7) Closed fracture of shaft of left tibia: Plan: as above (8) B12 deficiency: Plan: B12 level low at 226 Recommend supplementation Plan: Stable this afternoon. Ok for d/c as planned by medicine. Hospitalist service to sign off. Please call with any questions/concerns Admission and Anticipated Discharge Date Admission Date: January 17, 2022 Supervising Physician Co-Signing Physician Notes PA Supervision Note: I did not personally see or examine the patient today, but I verified all mays points of HARRY Tapia's assessment and plan with the following exceptions/additions: None Subjective Patient evaluated this morning. Doing well, pain present but controlled with tylenol this morning. Hopeful/anxious for discharge today. Discussed giving low dose of ativan for nerves this morning, he is agreeable. Did have decent amount of blood loss from significant fx/surgery, but denies any cp/palpitations/shortness of breath at this time. Eating breakfast without issue, reported first time ate in past 24-48 hours. Passing lots of gas, but no BM at this time. No abdominal pain. No lightheadedness/dizziness, and worked with PT/OT this morning, recs for regular walker. --> Of note, did admit to PT dizziness initially with sitting up. BPs 140s systolic sitting, dropped to 120s standing. Will give 1L IVF bolus, repeat orthostatics. If improved, d/c planned for today. 1L IVF provided and BPs improved and orthostatics improved Will arrange with CM about PCP/sleep study/event monitor. Questions/concerns addressed at this time. Review of Systems Review of Systems: All systems reviewed & are unremarkable except as noted in HPI & below Physical Exam Physical Exam: General: WN/WD thin male, sitting up in bed, NAD Eyes anicteric, pupils equal and reactive, mm slightly dry (improved in afternoon) Trachea midline,no deviation Resp: CTAB, no w/c/r, 100% on RA CV: RRR, 3-4/6 holosystolic murmur best at apex, no edema/calf non-tender, pulses palpable GI: +BS, soft, non-tender MSK: LLE in split with JASEN wrap, NVI, toes mobile but decreased sensation (reported improved) Neuro: NVI, moves all extremities, no focal deficit Psych: AOx3, cooperative and pleasant, admits to some anxiety about hoping for discharge today Results & Data Results & Data ([facility]) Vital Signs (Past 12 Hours) Vital Signs Temp Pulse Pulse Pulse Resp BP Pulse Ox 01/19/22 07:39 36.9 C 106 H 16 116/70 99 01/19/22 07:21 93 H 01/19/22 03:56 36.8 C 108 H 18 135/77 98 01/19/22 01:10 36.7 C 125 H 18 119/79 97 01/19/22 00:13 109 H 01/19/22 00:09 36.7 C 119 H 18 143/79 H 98 01/18/22 23:15 36.7 C 118 H 18 151/94 H 98 01/18/22 22:40 36.6 C 111 H 18 158/90 H 100 01/18/22 22:15 36.3 C L 108 H 18 127/85 100 01/18/22 22:05 103 H 18 133/83 98 01/18/22 21:55 106 H 18 150/85 H 100 01/18/22 21:49 36.4 C L 109 H 18 142/93 H 100 Laboratory Results 01/19/22 01/19/22 01/19/22 Range/Units 05:13 05:13 05:13 WBC 7.61 (4.8-10.8) K/uL RBC 3.59 L (4.7-6.1) M/uL Hgb 11.2 L D (14.0-18.0) g/dL Hct 33.0 L (42-52) % MCV 91.9 (80-100) fL MCH 31.2 (25-34) pg MCHC 33.9 (32-36) g/dL RDW Std Deviation 44.8 (36.4-46.3) fL RDW Coeff of Mirtha 13.4 (11.5-14.5) % Plt Count 211 (130-400) K/uL MPV 8.8 (7.4-10.4) fL Sodium 132 L (136-145) mmol/L Potassium 4.1 (3.5-5.1) mmol/L Chloride 102 (98-107) mmol/L Carbon Dioxide 24 (21-32) mmol/L Anion Gap 6 (3-11) BUN 12 (6-23) mg/dl Creatinine 0.94 (0.6-1.4) mg/dl Est Cr Clr Drug Dosing 86.5 ml/min Est GFR ( Amer) 107.6 ml/min Est GFR (Non-Af Amer) 92.8 ml/min BUN/Creatinine Ratio 12.8 (10-20) Glucose 210 H (70-99(Fasting)) mg/dl Fasting Glucose (70-99) mg/dl Calcium 7.8 L (8.5-10.1) mg/dl Magnesium 1.8 (1.7-2.4) mg/dl Vitamin B12 226 (180-914) pg/ml Folate 8.72 (>5.38) ng/ml TSH (0.300-4.500) uIu/ml Free T4 (0.61-1.60) ng/dl 01/18/22 01/18/22 Range/Units 08:04 08:04 WBC (4.8-10.8) K/uL RBC (4.7-6.1) M/uL Hgb (14.0-18.0) g/dL Hct (42-52) % MCV (80-100) fL MCH (25-34) pg MCHC (32-36) g/dL RDW Std Deviation (36.4-46.3) fL RDW Coeff of Mirtha (11.5-14.5) % Plt Count (130-400) K/uL MPV (7.4-10.4) fL Sodium 136 (136-145) mmol/L Potassium 4.5 (3.5-5.1) mmol/L Chloride 100 (98-107) mmol/L Carbon Dioxide 28 (21-32) mmol/L Anion Gap 8 (3-11) BUN 8 (6-23) mg/dl Creatinine 0.83 (0.6-1.4) mg/dl Est Cr Clr Drug Dosing 97.9 ml/min Est GFR ( Amer) 117.3 ml/min Est GFR (Non-Af Amer) 101.2 ml/min BUN/Creatinine Ratio (10-20) Glucose (70-99(Fasting)) mg/dl Fasting Glucose 91 (70-99) mg/dl Calcium 9.4 (8.5-10.1) mg/dl Magnesium 2.1 (1.7-2.4) mg/dl Vitamin B12 (180-914) pg/ml Folate (>5.38) ng/ml TSH 5.257 H (0.300-4.500) uIu/ml Free T4 0.78 (0.61-1.60) ng/dl PG Care Time/CCT Total # of Minutes Spent Total Time Spent with Patient: Total time spent is greater than 50% in coordination of care (as documented) at patient's floor/unit and/or counseling patient: Coding Level of Care Code 53317 Subseq Hosp Care Lvl 3 Diagnoses Fracture of posterior malleolus of left tibia S82.392A Murmur R01.1 Hypertension I10 EKG abnormality R94.31 Tobacco abuse Z72.0 Closed fracture of left distal fibula S82.832A Closed fracture of shaft of left tibia S82.202A B12 deficiency E53.8
--- NOTE | 2022-01-19 08:46 | XRay Report ---
XR ankle LT min 3V routine CLINICAL HISTORY: Post op. Status post internal fixation COMPARISON STUDY: No previous studies for comparison. TECHNIQUE: 3 left ankle views FINDINGS: Bones: The patient is status post plate and screw fixation transfixing the distal fibula. The distal end of an intramedullary lindsey is present transfixing a distal tibial fracture. The fracture fragments are in near-anatomic alignment. The ankle is in a splint. IMPRESSION: 1. Status post internal fixation. ACT 112: Negative or not required by law. Electronically signed by: Ford Casillas M.D. 01/19/2022 8:43 AM
[2022-01-19] MEDS ORDERED: ENOXAPARIN INJ 40 MG/0.4 ML SYR SQ SCH (09:00)
[2022-01-19] MEDS ORDERED: CYANOCOBALAMIN (B-12) 500 MCG TABLET PO SCH (09:00)
[2022-01-19] MEDS ORDERED: LORazepam 0.5 MG TAB PO STA (10:11)
--- NOTE | 2022-01-19 10:15 | Orthopedic Progress Note ---
Date of Service January 19, 2022 Assessment & Plan (1) Closed fracture of left distal fibula: (2) Closed fracture of shaft of left tibia: s/p Left tibia closed reduction and Intramedullary Nail fixation, Fibula Fracture Open Reduction, Internal Fixation (DOS 01/18/2022; Dr. Kowalski) -Progressing as expected on POD 1 -NWB LLE x 6 weeks -DVT ppx: Lovenox -Pain control: Tylenol scheduled, oxycodone 5mg/10mg prn, dilaudid IV prn -24 hr post op abx ordered -PT/OT evaluations for d/c planning -Medicine following for possible alcohol withdrawal management. Appreciate assistance. Disposition: Needs PT/OT evaluation. OK to d/c today if cleared by PT/OT to discharge home. Will need follow up in clinic in 2 weeks for incision check/staple removal and repeat XRs. Subjective Doing okay today. Having some incisional pain but not severe. Endorses some numbness in the toes. Review of Systems All systems reviewed & are unremarkable except as noted in HPI & below. Physical Exam General: Pleasant 51 y/o/m resting in bed in NAD. AAO x 4 RLE: Splint left in place. Dressing C/D/I. Distally N/V/I. Can lift leg against gravity, actively flex/extend knee, wiggle toes. Some diminished sensation in toes. Results & Data Results & Data Laboratory Results Reviewed . Diagnostic Findings Post op XRs reviewed and stable . PG Care Time/CCT Total # of Minutes Spent Total Time Spent with Patient: Total time spent is greater than 50% in coordination of care (as documented) at patient's floor/unit and/or counseling patient: Coding Level of Care Code 95162 Post Operative Follow-Up Diagnoses Closed fracture of left distal fibula S82.832A Closed fracture of shaft of left tibia S82.202A
[2022-01-19] MEDS ORDERED: SODIUM CHLORIDE 0.9% 1000ML 250 ML IV ONE (10:22)
[2022-01-19] MEDS ORDERED: SODIUM CHLORIDE 0.9% 1000ML 1,000 ML IV ONE (10:32)
--- NOTE | 2022-01-19 17:21 | Orthopedic Progress Note ---
Date of Service January 19, 2022 Assessment & Plan (1) Closed fracture of left distal fibula: (2) Closed fracture of shaft of left tibia: s/p Left tibia closed reduction and Intramedullary Nail fixation, Fibula Fracture Open Reduction, Internal Fixation (DOS 01/18/2022; Dr. Kowalski) Stable for discharge home. DVT prophylaxis will be Lovenox daily. He is nonweightbearing and cleared by PT/OT. I instructed him to follow-up Saturday if there is any issues with his splint over the weekend. Subjective Called to evaluate because the patient was reporting some pressure inside the splint around his ankle. At the bedside he reported right above the medial lateral malleolus there was some pressure. He felt things were moving and rubbing. This occurred when he was lifting the leg or ambulating. When I adjusted the splint, he said the sensation improved. Otherwise he thinks he is ready to go home. Review of Systems All systems reviewed & are unremarkable except as noted in HPI & below. Physical Exam LLE: Splint was opened vertically in the anterior side. I removed some of the ABD padding around the malleoli. I rewrapped it with an Maury wrap. He picked up the leg moved around readily. He said it felt better. Results & Data Results & Data Laboratory Results H & H 01/17/22 01/18/22 01/19/22 Range/Units 22:23 08:04 05:13 Hgb 13.9 L 14.3 11.2 L D (14.0-18.0) g/dL Hct 39.7 L 42.1 33.0 L (42-52) % Coagulation 01/17/22 Range/Units 22:23 INR 1.0 (0.9-1.1) Diagnostic Findings Postop radiographs show acceptable alignment and no hardware complications PG Care Time/CCT Total # of Minutes Spent Total Time Spent with Patient: Total time spent is greater than 50% in coordination of care (as documented) at patient's floor/unit and/or counseling patient: Coding Level of Care Code 02752 Post Operative Follow-Up Diagnoses Closed fracture of left distal fibula S82.832A Closed fracture of shaft of left tibia S82.202A
--- NOTE | 2022-01-22 12:09 | Emergency Department Note ---
History of Present Illness General Chief complaint: Leg Injury/Pain Stated complaint: L LEG BROKEN Time Seen by Provider: 01/17/22 19:57 Source: patient Mode of arrival: ambulatory Limitations: no limitations History of Present Illness Maximum Pain Intensity: 6 This patient is a 51-year-old male who presents to the emergency department for evaluation of an injury to his left lower extremity. He states he was fishing and tripped over a root and injured his lower leg. Injury occurred just prior to arrival. He has not been able to bear weight. He rates his discomfort a /10. Home Medications Medication Instructions Recorded Confirmed Type enoxaparin 40 mg/0.4 mL 40 mg SUBCUT DAILY #4 ml 01/19/22 Rx subcutaneous syringe (Lovenox) ferrous sulfate 325 mg (65 mg 325 mg PO DAILY #30 tab 01/19/22 Rx iron) tablet (Iron (ferrous sulfate)) ondansetron HCl 4 mg tablet 4 mg PO Q6H PRN #12 tab 01/19/22 Rx oxycodone 5 mg tablet 5 - 10 mg PO Q4H PRN #18 tab 01/19/22 Rx Allergies Allergy/AdvReac Type Severity Reaction Status Date / Time No Known Allergies Allergy Verified 01/17/22 20:15 Past Med/Surg History Medical History Alcohol abuse B12 deficiency Crohn's disease Murmur Tobacco abuse Family History (Updated 01/18/22 @ 22:45 by Yamile Flores MD) Denies family history of Coronary heart disease Hypertension Social History Smoking Status: Never smoker Tobacco Type: Smokeless Tobacco (Dip or Chew) Second Hand Exposure: No; Hx Alcohol Use: Yes Alcohol type: beer Alcohol type Comment: 4-5 beers daily, last 2 beers 4/6 Hx Substance Use: No Preferred Language: German Communication Ability: Effective Title Assistant Required: No Beliefs That Will Affect Care: None Current Living Situation: Family Feels Safe at Home: Yes Assistive Devices: None Review of Systems A total of 10 systems reviewed and were otherwise negative Physical Exam VITALS: Vitals are noted on the nurse's note and reviewed by myself. GENERAL: This is a 51-year-old male, in no acute distress, well-developed well- nourished. SKIN: No lacerations or abrasions. HEART: Regular rate and rhythm without murmurs gallops or rubs. LUNGS: Clear to auscultation bilaterally without wheezes, rales or rhonchi. MUSCULOSKELETAL: There is an obvious deformity of the left lower extremity, with significant edema noted of the mid to distal tibia/fibula. Patient is significant tenderness in this region. Full range of motion of the toes. Dorsalis pedis pulse 2+. NEURO: Patient was alert and oriented to person place and time. Distal sensation intact. Course Course Splint placement: Splint: Ortho-Glass posterior with stirrup Indication: Left tibia, fibula fracture Ortho-Glass splint was applied by the ED civil laboratory technician under my supervision. N eurovascular status reassessed by myself status post splint placement and was intact. Consultations Consultation #1: Dr. Kowalski - orthopedics Administered Medications Discontinued Medications Acetaminophen (Acetaminophen 500 Mg Tab) 1,000 mg PO Q8H [facility] Stop: 02/17/22 00:29 Last Admin: 01/19/22 16:53 Dose: 1,000 mg Documented by: [id number] Admin: 01/19/22 08:06 Dose: 1,000 mg Documented by: [id number] Admin: 01/19/22 01:05 Dose: 1,000 mg Documented by: [id number] Admin: 01/18/22 16:00 Dose: Not Given Documented by: [id number] Admin: 01/18/22 07:46 Dose: 1,000 mg Documented by: [id number] Admin: 01/18/22 00:37 Dose: 1,000 mg Documented by: [id number] Cyanocobalamin (Cyanocobalamin (B-12) 500 Mcg Tablet) 500 mcg PO QAM [facility] Stop: 02/18/22 08:59 Last Admin: 01/19/22 09:11 Dose: 500 mcg Documented by: [id number] Docusate Sodium (Docusate Sodium 100 Mg Cap) 100 mg PO BID [facility] Stop: 02/17/22 08:59 Last Admin: 01/19/22 08:07 Dose: 100 mg Documented by: [id number] Admin: 01/18/22 22:59 Dose: 100 mg Documented by: [id number] Admin: 01/18/22 07:50 Dose: Not Given Documented by: [id number] Enoxaparin Sodium (Enoxaparin Inj 40 Mg/0.4 Ml Syr) 40 mg SQ QAOK [facility] [place] Stop: 02/18/22 08:59 Last Admin: 01/19/22 08:07 Dose: 40 mg Documented by: [id number] Fentanyl Citrate (Fentanyl Citrate 100 Mcg/2 Ml Vial) 50 mcg IV Q5M PRN PRN Reason: PACU Use Only-Pain Stop: 01/19/22 00:50 Last Admin: 01/18/22 22:01 Dose: 50 mcg Documented by: [id number] Admin: 01/18/22 21:56 Dose: 50 mcg Documented by: [id number] Hydromorphone HCl (Hydromorphone Inj 0.5 Mg/0.5 Ml Syr) 0.5 mg IV Q3H PRN PRN Reason: Pain (6,7,8,9,10) Stop: 02/01/22 00:07 Last Admin: 01/18/22 16:11 Dose: 0.5 mg Documented by: [id number] Admin: 01/18/22 07:46 Dose: 0.5 mg Documented by: [id number] Admin: 01/18/22 00:38 Dose: 0.5 mg Documented by: [id number] Cefazolin Sodium (Ancef 2000mg) 2,000 mg in 15 mls @ 3.75 mls/min IV PREOP [facility]; Protocol Stop: 01/18/22 18:00 Last Admin: 01/18/22 17:30 Dose: 3.75 mls/min Documented by: [id number] Thiamine HCl 100 mg/ Syringe 10 mls @ 2 mls/min IV [facility] Stop: 02/17/22 08:59 Last Admin: 01/19/22 08:07 Dose: 2 mls/min Documented by: [id number] Admin: 01/18/22 10:21 Dose: 2 mls/min Documented by: [id number] Folic Acid 1 mg/ Syringe 10 mls @ 5 mls/min IV QAOK [facility] [place] Stop: 02/17/22 08:59 Last Admin: 01/19/22 08:07 Dose: 5 mls/min Documented by: [id number] Admin: 01/18/22 10:21 Dose: 5 mls/min Documented by: [id number] Sodium Chloride (Nss 1000ml) 1,000 mls @ 70 mls/hr IV .[id number] [facility] Stop: 02/17/22 09:14 Last Admin: 01/18/22 23:01 Dose: Not Given Documented by: [id number] Infusion: 01/18/22 22:59 Dose: 0 mls/hr Documented by: [id number] Infusion: 01/18/22 16:10 Dose: 0 mls/hr Documented by: [id number] Admin: 01/18/22 10:21 Dose: 70 mls/hr Documented by: [id number] Cefazolin Sodium (Ancef 2000mg) 2,000 mg in 15 mls @ 3.75 mls/min IV Q8H [facility]; Protocol Stop: 01/19/22 12:03 Last Admin: 01/19/22 11:51 Dose: 3.75 mls/min Documented by: [id number] Admin: 01/19/22 03:51 Dose: 3.75 mls/min Documented by: [id number] Sodium Chloride (Nss 1000ml) 1,000 mls @ 100 mls/hr IV .Q10H [facility] Stop: 01/19/22 06:00 Last Infusion: 01/19/22 06:34 Dose: 0 mls/hr Documented by: [id number] Admin: 01/18/22 22:59 Dose: 100 mls/hr Documented by: [id number] Tranexamic Acid (Tranexamic Acid / 0.7% Nacl) 1,000 mg in 100 mls @ 600 mls/hr IV ONCE ONE Stop: 01/18/22 23:09 Last Infusion: 01/19/22 00:05 Dose: 0 mls/hr Documented by: [id number] Admin: 01/18/22 23:49 Dose: 600 mls/hr Documented by: [id number] Sodium Chloride (Nss 1000ml) 250 mls @ 999 mls/hr IV .Q16M ONE Stop: 01/19/22 10:37 Last Admin: 01/19/22 10:33 Dose: Not Given Documented by: [id number] Sodium Chloride (Nss 1000ml) 1,000 mls @ 999 mls/hr IV .Q1H1M ONE Stop: 01/19/22 11:32 Last Infusion: 01/19/22 11:51 Dose: 0 mls/hr Documented by: [id number] Admin: 01/19/22 10:41 Dose: 999 mls/hr Documented by: [id number] Ibuprofen (Ibuprofen 600 Mg Tab) 600 mg PO NOW STA Stop: 01/17/22 20:54 Last Admin: 01/17/22 21:07 Dose: 600 mg Documented by: [id number] Lorazepam (Lorazepam 0.5 Mg Tab) 0.5 mg PO NOW STA Stop: 01/19/22 10:12 Last Admin: 01/19/22 10:18 Dose: 0.5 mg Documented by: [id number] Miscellaneous (Remove Nicoderm Patch) 1 ea N/A DAILY@[id number] [facility] Stop: 02/18/22 08:58 Last Admin: 01/19/22 08:06 Dose: 1 ea Documented by: [id number] Nicotine (Nicotine 14 Mg/24 Hr Patch) 14 mg TD QAOK [facility] [place] Stop: 02/17/22 09:14 Last Admin: 01/18/22 23:03 Dose: 14 mg Documented by: [id number] Admin: 01/18/22 10:21 Dose: 14 mg Documented by: [id number] Oxycodone HCl (Oxycodone Hcl Ir 5 Mg Tab (Immediate Release)) 5 mg PO Q4H PRN PRN Reason: MODERATE Pain (4,5,6) & Pre PT Stop: 02/01/22 00:07 Last Admin: 01/19/22 18:10 Dose: 5 mg Documented by: [id number] Admin: 01/19/22 12:50 Dose: 5 mg Documented by: [id number] Oxycodone HCl (Oxycodone Hcl Ir 5 Mg Tab (Immediate Release)) 10 mg PO Q4H PRN PRN Reason: SEVERE Pain (7,8,9,10) Stop: 02/01/22 00:07 Last Admin: 01/19/22 03:51 Dose: 10 mg Documented by: [id number] Admin: 01/18/22 22:58 Dose: 10 mg Documented by: [id number] Medical Decision Making Differential Diagnosis Fracture, subluxation, dislocation, contusion, ligamentous injury, neurovascular, compartment syndrome, rhabdomyolysis, as well as other pathologies. Home Medications Current Medication List: was personally reviewed by me Laboratory Data Attestation: I reviewed the patient's lab results. Result diagrams: 01/19/22 05:13 01/19/22 05:13 Imaging Data Attestation: I personally reviewed and interpreted this imaging study as follows: Radiologist's Impression: XR tibia fibula LT 2V FINDINGS: No acute proximal left tibial or fibular fracture is present. Note is made of an acute oblique mildly displaced fracture through the diaphysis of the left tibia at the junction of the middle and distal thirds. Fracture is displaced 7 mm. Nondisplaced component extends to the distal left tibia. There is also an acute oblique displaced fracture the distal diaphysis of the left fibula. Fracture is displaced 6 minutes. IMPRESSION: Acute oblique mildly displaced left tibial and fibular fractures, as described above. XR ankle LT min 3V routine FINDINGS: Note is made of an acute oblique mildly displaced fracture of the diaphysis of the left tibia at the junction of the middle and distal thirds. Fracture is displaced 7 mm. A nondisplaced component extends through the distal left tibia. There is an acute oblique comminuted mildly displaced distal diaphyseal fracture of the left fibula as well. No ankle mortise widening is noted. Lateral ankle soft tissue swelling is present. Talar dome is intact. IMPRESSION: Oblique displaced comminuted left tibial and fibular fractures, as described above. CT SCAN OF THE LEFT TIBIA AND FIBULA WITHOUT IV CONTRAST FINDINGS: The skeletal structures are well mineralized. Again seen is a comminuted spiral fracture of the mid to distal tibial shaft. There is lateral offset of the distal fragment by 5 mm and dorsal displacement of the distal fragments by up to 5 mm. Fracture extends distally to the articular surface at the posterior tibial plafond. This is best seen on axial image #655. There is also a comminuted fracture of the lateral malleolus with numerous small displa turner fragments. This also extends to the joint space. Anatomic alignment is maintained at the ankle mortise. There is a small joint effusion. The proximal tibia and fibula appear intact. The knee joint is grossly maintained. Hemorrhage and edema is noted around the fracture sites with no large/organized hematoma identified. There is mild generalized atrophy of the regional musculature. Advanced atherosclerotic calcification is noted in the regional arteries. IMPRESSION: 1. Comminuted and mildly displaced spiral fracture of the mid to distal tibial shaft. This extends to the articular surface through the posterior malleolus. 2. Comminuted fracture of the lateral malleolus. 3. There is hemorrhage around the fracture sites with no large hematoma identified. MDM Narrative This patient is a 51-year-old male who presents to the emergency department for evaluation of an injury to his left lower extremity. Patient found to have a significant fracture of the tibial shaft as well as a lateral malleolus fracture. Patient was placed in a splint in the emergency department. Orthopedics was consulted and did elect to admit the patient for operative management tomorrow. Patient was agreeable with the plan. He was admitted in good condition. Impression & Plan Closed fracture of shaft of left tibia, Closed fracture of left distal fibula Discharge Plan Visit Data Chief Complaint: Leg Injury/Pain Stated Complaint: L LEG BROKEN ED Provider: Zeus Gomez ED Midlevel Provider: Thais Maurer Discharge Problem: Closed fracture of shaft of left tibia, Closed fracture of left distal fibula Patient Disposition: Admitted As Inpatient Discharge Instructions Interventions: ED Discharge Assessment Last Done: 01/17/22 23:54
--- NOTE | 2022-01-23 15:48 | Discharge Summary ---
Date of Service January 23, 2022 Admission HPI (Per Admitting) 51-year-old otherwise healthy and active male twisted his ankle and impacted his leg today resulting in immediate pain and deformity. He was fishing down the bank. He was able to crawl on his hands and knees up to the road where he could find help. He was brought to the emergency room where radiographs revealed a tibial shaft fracture and ipsilateral left distal fibula fracture. Orthopedics was consulted for definitive management. He appeared to have an isolated injury to his tibia and ankle. He was admitted for preoperative management and surgical stabilization the next morning. Upon admission EKG identified atrial fibrillation. Internal medicine was consulted for preoperative work-up. He reported tolerable pain in the splint. He denied any previous injuries to his tibia. He denied any known medical problems or medications. 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 Admission Exam (Per Admitting) Left lower extremity: No report of wounds from the emergency room nor the patient. He was placed in a short leg ankle splint by the ED. Appear to be adequate padding. He was neurovascular intact including motor to his digits. Principal Diagnosis Same as "Discharge Diagnosis" noted below under Discharge Instructions. Discharge Exam LLE: Splint was opened vertically in the anterior side. I removed some of the ABD padding around the malleoli. I rewrapped it with an Muary wrap. He picked up the leg moved around readily. He said it felt better. Discharge Data Consultations 01/17/22 21:14 ED Decision to Admit Stat 01/18/22 01:11 Consult Hospitalist Routine Procedures Performed Operation Date: 01/18/22 11:50 Actual Procedures p Left Tibial Nail, Left Tibia and Fibula Fracture Open Reduction, Internal Fixation(Left) - Nando Kowalski MD Ordered Studies 01/17/22 21:12 CT tib/fib LT wo con Urgent 01/18/22 FL tibia/fibula LT 2V Routine 01/18/22 17:02 US - OR guided needle placemen Routine Hospital Course (1) EKG abnormality: (2) Murmur: (3) Fracture of posterior malleolus of left tibia: (4) Closed fracture of left distal fibula: (5) Closed fracture of shaft of left tibia: Patient was admitted preoperatively for pain control and to await the OR. His admission EKG showed a rhythm abnormality. Internal medicine was consulted and a full work-up revealed no concerns. He was cleared for surgery and underwent a closed reduction and instrumented nail fixation of the tibia as well as an open reduction internal fixation of the distal fibula on 01/18/2022. Surgery was without complications. He was admitted postoperatively for pain control. He was evaluated by PT/OT and made appropriate progress. He was found stable for discharge on postoperative day 1. PG Care Time/CCT Total # of Minutes Spent Total Time Spent with Patient: Total time spent is greater than 50% in coordination of care (as documented) at patient's floor/unit and/or counseling patient: Discharge Plan Discharge Items Patient Disposition: Home - Self-Care Reason For Visit: LEFT TIBIA AND FIBULA FRACTURE Discharge Diagnosis: Same as above Activity: Per Instructions section Non-emergency contact: Surgeon Call non-emergency contact if: you have any medication questions, your pain is not controlled and your temperature is above 101 Follow-up/Referrals: Ashutosh Frank CRNP [Primary Care Provider] - 02/01/22 10:20 am ([facility] in [place]. This appointment is for hospitalization follow up, as well as to become established as a new patient.) Nando Kowalski MD [Surgeon] - Diet: Regular Ambulatory Orders: SARS CoV2 RNA(COVID-19)[place] (Routine) Timeframe: 1 Month Facility: [facility] - Location: Laboratory [facility] Ordered By: Kay Miller Attending Provider Instructions: You are being arranged with new PCP at discharge. You are also being arranged for a 30 day event monitor to evaluate for any arrhythmia but have been without afib on telemetry and initial EKG was reviewed by cardiology and deemed NOT afib. This can occasionally come and go/worsened by drinking and this may be a good idea to cut back alcohol use. Also recommend limiting/quitting chewing tobacco. Your hemoglobin dropped from blood loss/significant surgery and may not be a bad idea to be on some oral iron supplementation with vitamin C to boost your stores. You vitamin B12 level was also borderline low (can also be due to alcohol) and you may want to consider a B complex daily to prevent deficiency. Your TSh was checked initially given concern for afib and this was elevated but your FT4 was normal, and this is likely reactive from stress/fracture and can have these labs repeated as an outpatient to ensure normal and no need for any medications like Synthroid. A referral has been placed to the [facility] for you to have a sleep study performed. You will need to have a COVID test done prior to this sleep study. The sleep center will call you with dates to get the COVID test done, as well as for your sleep study. You can go to the [facility] in [place] to have this COVID test done. If you have questions about this, please call the sleep center at [phone]. Nando Kowalski M.D. [facility] [address] [facility], [place] [address] POSTOPERATIVE INSTRUCTIONS LEG AND ANKLE FRACTURES SPLINT/WOUND CARE: Leave your splint in place and keep the area clean and dry. Your splint will be taken down at your postop clinic visit. Do not remove it yourself. Do not walk on your splint. You should be completely non-weightbearing. Use your crutches as instructed. If the splint becomes wet, dirty, uncomfortable, or loose, please call the Orthopedic Clinic ([phone]) to arrange to be evaluated in the [facility]. Please call the Ortho Clinic if you have any questions or concerns PAIN CONTROL: Elevation is your best friend. Elevate the affected extremity above the level of your heart. Swelling is simply fluid. Elevation will allow the fluid to run down hill, reduce swelling, and decrease pain. The affected extremity should be continuously elevated for the first 2-3 days, with the exception of bathroom, hygiene, etc. You may be prone to swelling for several weeks, or until you return to normal function with your foot/ankle. Ice will help with pain and swelling. Place ice over the front of your ankle. There is abundant padding so it may take a while to feel like its working. Be sure to not let the ice leak into your splint. Medications: 1. Oxycodone (OxyIR) 1-2 tablet(s) orally every 4 hours for pain as needed. Use with Tylenol. Begin tapering OxyIR as soon as possible: reduce from 2 to 1 pills per dose, then spread out the doses over greater time intervals, then try to use only for therapy or for comfort while sleeping. Continue to use regular Tylenol until pain subsides. 2. Tylenol (325mg): 3 tablets every 8 hours orally. Regular dosing of Tylenol is an important part of your baseline pain control. Do not taper Tylenol until you have successfully tapered off of regular OxyIR. Do not take more than 3000mg of Tylenol per day. 3. Zofran: 1 tablet orally every 6 hours as needed for nausea related to anesthesia, pain, and narcotic medications. 4. Colace (100mg): take 1-2 tabs twice daily to avoid constipation from OxyIR or other narcotics. OVER THE COUNTER 5. Aspirin (325mg): Blood clots can be caused by fracture and immobility. Ankle fractures have a low risk of blood clots, but one aspirin tablet per day starting the day after surgery may reduce whatever minimal risk there is even further. The risk of clots goes down significantly after 30 days or as you return to normal mobility. WHEN TO CALL. If you develop any of the following symptoms, please contact the [facility] at [phone] or the Emergency room (after hours): Temperature greater than 101 taken twice, difficulty breathing, bleeding, fever and chills, increased pain unrelieved by pain meds, uncomfortable cast or splint, or any other concerns. Pending Studies at Discharge: No Stand-Alone Forms: My [facility], Opioid Pain Management, Smoking Cessation Medications and DC Order Prescriptions: New ondansetron HCl 4 mg tablet 4 mg PO Q6H PRN (Reason: nausea and vomiting) Qty: 12 RF: 0 ferrous sulfate [Iron (ferrous sulfate)] 325 mg (65 mg iron) tablet 325 mg PO DAILY Qty: 30 RF: 2 enoxaparin [Lovenox] 40 mg/0.4 mL syringe 40 mg subcut DAILY Qty: 4 RF: 3 No Action oxycodone 5 mg tablet 5 - 10 mg PO Q4H PRN (Reason: pain, initial therapy) Qty: 18 RF: 0 Discharge Orders: Discharge Order (Routine); Ordered 01/19/22 Ordered By: Nando Kowalski Admission Data Admit Date/Time: 01/17/22 21:31 Attending Provider: Nando Kowalski Admit Provider: Nando Kowalski Primary Care Provider: Ashutosh Frank Other Providers: Yamile Flores ; Nando Kowalski ; Rosalinda Cosme [facility] Other Interventions: Discharge Summary Assessment (RN) Last Done: 01/19/22 17:42
== END 2022-01-19 18:28 | disposition home health service (06) | DRG 493 ==
LOC: ED 19:38 → 3E 21:31 → 2W 01-18 22:29